=== PATIENT | female | born 1950 | race Caucasian/White ===

== ENCOUNTER 2018-09-25 11:03 | Inpatient (IN) | payer OTHER ==
[2018-09-19 14:44] LABS: BASOPHILS % (AUTO) 0.5 % (0-1); EOSINOPHILS # (AUTO) 0.2 X10'3 (0-0.9); EOSINOPHILS % (AUTO) 3.3 % (0-6); LYMPHOCYTES # (AUTO) 1.9 X10'3 (1.1-4.8); LYMPHOCYTES % (AUTO) 31.2 % (21-51); MEAN CORPUSCULAR HEMOGLOBIN 28.9 PG (27.0-31.0); MEAN CORPUSCULAR HGB CONC 33.1 % (33.0-36.5); MEAN CORPUSCULAR VOLUME 87.2 FL (78-98); MEAN PLATELET VOLUME 8.3 FL (7.4-10.4); MONOCYTES # (AUTO) 0.5 X10'3 (0-0.9); NEUTROPHILS # (AUTO) 3.5 X10'3 (1.8-7.7); PRE OP HEMATOCRIT 41.5 % (35.0-45.0); PRE OP HEMOGLOBIN 13.7 g/dL (12.0-16.0); PRE OP PLATELET COUNT 333 X10'3 (140-440); RED BLOOD COUNT 4.76 X10'6 (4.20-5.60); RED CELL DISTRIBUTION WIDTH 12.8 % (11.5-14.5)
[2018-09-19 15:01] LABS: ALBUMIN 3.6 G/DL (3.4-5.0); ALBUMIN/GLOBULIN RATIO 1.1 (1.1-1.5); ALKALINE PHOSPHATASE 91 IU/L (46-116); BLOOD UREA NITROGEN 14 MG/DL (7-18); BUN/CREATININE RATIO 17.5 (6.6-38.0); CALCIUM 9.2 MG/DL (8.5-10.1); CHLORIDE 106 MMOL/L (99-107); PRE OP ALT 24 U/L (30-65); PRE OP ANION GAP 8 (8-16); PRE OP AST 15 U/L (10-37); PRE OP BILIRUB, TOTAL 0.6 MG/DL (0.0-1.0); PRE OP GLUCOSE 110 MG/DL (70-104); PRE OP SODIUM 143 MMOL/L (135-145); TOTAL CARBON DIOXIDE 28.9 MMOL/L (24-32); eGFR 71 ML/MIN
[2018-09-25] VITALS (15 sets, daily range): BP systolic 88–113; BP diastolic 50–76
[~2018-09-25] VITALS: Ht 162.6 cm; Wt 67.0 kg
[~2018-09-25 11:03] MED LIST: ATOR10TA70 PO; CALC-729 PO; LEVO150T PO; VANCOMYCIN INJ 1000 MG in NORMAL SALINE 250ml IV.SOLN IV ONE; acetaminophen 325mg tablet PO ONE; cefazolin/dext.iso 2gm/100 ML IV ONE; famotidine 20mg tablet PO ONE; gabapentin 300mg capsule PO ONE; metoclopramide 5 mg/ml inj IV ONE; oxyCODONE SR 10mg (sust. release) tab -2 tabs (20mg) PO ONE; ringers solution, lacted 1,000 ML IV SCH; tranexamic acid inj. 1,000 MG in normal saline 100ml IV soln 90 ML IV ONE
[2018-09-25] MEDS ORDERED: MIDAZolam 1mg/ml 10ml vial ONE (14:18)
[2018-09-25] MEDS ORDERED: fentaNYL/PF 50MCG/1 ML 2ML syringe ONE (14:18)
[2018-09-25] MEDS ORDERED: tetracaine 1% (10mg/ml) pres. free inj. ONE (14:19)
[2018-09-25] MEDS ORDERED: ROPIVAcaine inj 200 MG, ketorolac trometh inj. 30 MG, epiNEPHrine inj 0.6 MG, morphine ... IU ONE ×5 (14:30)
[2018-09-25] MEDS ORDERED: propofol inj 20 ML IV ONE (14:52)
[2018-09-25] MEDS ORDERED: ringers solution, lacted 1,000 ML IV SCH (15:02)
[2018-09-25] MEDS ORDERED: ondansetron/PF 4mg/2ml inj IV PRN (15:05)
[2018-09-25] MEDS ORDERED: meperidine/PF 25mg/ml syringe IV PRN ×3 (15:05)
[2018-09-25] MEDS ORDERED: morphine 4 MG/ML inj SYRINge IV PRN ×2 (15:05)
[2018-09-25] MEDS ORDERED: proCHLORperazine 10 MG/2 ml inj IV PRN (15:05)
[2018-09-25] MEDS ORDERED: ROPIVAcaine 0.5% (5mg/ml) 30ml vial ONE ×2 (15:44→15:49)
[2018-09-25] MEDS ORDERED: ketorolac trometh. 30mg/ml inj. ONE (15:48)
[2018-09-25] MEDS ORDERED: epiNEPHrine 1 mg/ml inj ONE (15:48)
[2018-09-25] MEDS ORDERED: morphine 10mg/ml inj. ONE (15:49)
[2018-09-25] MEDS ORDERED: magnesium hydroxide 30ml (MOM) UD suspension PO PRN (16:15)
[2018-09-25] MEDS ORDERED: diphenhydrAMINE 25mg capsule PO PRN ×2 (16:15)
[2018-09-25] MEDS ORDERED: acetaminophen 325mg tablet PO PRN (16:15)
[2018-09-25] MEDS ORDERED: bisacodyl 10mg suppository rectal RC PRN (16:15)
[2018-09-25] MEDS ORDERED: HYDROmorphone 1 mg/ml syringe IV PRN ×2 (16:15)
[2018-09-25] MEDS ORDERED: tranexamic acid inj. 700 MG in normal saline 100ml IV soln 100 ML IV ONE (19:15)
[2018-09-25] MEDS ORDERED: vancomycin/NS 1 GM ADD-VANTAGE 250 ML IV SCH (20:00)
[2018-09-25] MEDS: acetaminophen 325mg tablet PO SCH (22:39)
[2018-09-25] MEDS: sennosides 8.6mg tablet PO SCH (22:40)
[2018-09-25] MEDS: gabapentin 300mg capsule PO SCH (22:40)
[2018-09-25] MEDS: ondansetron/PF 4mg/2ml inj IV PRN (22:48)
[2018-09-26] VITALS (7 sets, daily range): BP systolic 104–139; BP diastolic 58–71
[2018-09-26] MEDS: potassium cl 20mEq in 1/2 NS 1,000 ML IV SCH ×4 (00:20→16:14)
[2018-09-26] MEDS: ceFAZolin 1GM/D5W- ADD-VANTAGE 50 ML IV SCH ×2 (00:23→15:44)
[2018-09-26] MEDS: acetaminophen 325mg tablet PO SCH ×4 (02:00→19:55)
[2018-09-26] MEDS: oxyCODONE IR 5mg (immed. release) tablet PO PRN ×3 (04:54→21:26)
[2018-09-26 05:24] LABS: BASOPHILS % (AUTO) 0 % (0-1); EOSINOPHILS # (AUTO) 0.2 X10'3 (0-0.9); EOSINOPHILS % (AUTO) 1.4 % (0-6); HEMATOCRIT 36.9 % (35.0-45.0); HEMOGLOBIN 12.6 g/dl (12.0-16.0); LYMPHOCYTES # (AUTO) 0.7 X10'3 (1.1-4.8); LYMPHOCYTES % (AUTO) 5.7 % (21-51); MEAN CORPUSCULAR HEMOGLOBIN 29.3 PG (27.0-31.0); MEAN CORPUSCULAR HGB CONC 34.2 % (33.0-36.5); MEAN CORPUSCULAR VOLUME 85.8 FL (78-98); MEAN PLATELET VOLUME 8.7 FL (7.4-10.4); MONOCYTES # (AUTO) 0.3 X10'3 (0-0.9); MONOCYTES % (AUTO) 2.7 % (2-12); NEUTROPHILS # (AUTO) 10.4 X10'3 (1.8-7.7); NEUTROPHILS % (AUTO) 90.2 % (42-75); PLATELET COUNT 247 X10'3 (140-440); RED CELL DISTRIBUTION WIDTH 12.5 % (11.5-14.5); WHITE BLOOD COUNT 11.6 X10'3 (4.5-11.0)
[2018-09-26 06:00] LABS: ANION GAP 11 (8-16); CHLORIDE 104 MMOL/L (99-107); POTASSIUM 4.8 MMOL/L (3.5-5.1); SODIUM 139 MMOL/L (135-145); TOTAL CARBON DIOXIDE 24.2 MMOL/L (24-32)
[2018-09-26] MEDS ORDERED: atorvastatin 10mg tablet PO SCH (08:00)
[2018-09-26] MEDS: calcium carbonate/vitamin D3 tablet PO SCH ×2 (08:51→19:14)
[2018-09-26] MEDS: levoTHYROXINE 75mcg tablet PO SCH (08:51)
[2018-09-26] MEDS: gabapentin 300mg capsule PO SCH ×3 (08:52→21:26)
[2018-09-26] MEDS: aspirin 325mg tablet PO SCH (08:52)
[2018-09-26] MEDS: ondansetron/PF 4mg/2ml inj IV PRN (12:14)
[2018-09-26] MEDS: celeCOXIB 100mg capsule PO SCH (19:55)
[2018-09-26] MEDS: proCHLORperazine 10 MG/2 ml inj IV PRN (21:10)
[2018-09-26] MEDS: atorvastatin 10mg tablet PO SCH (21:26)
[2018-09-26] MEDS: sennosides 8.6mg tablet PO SCH (21:26)
[2018-09-27] MEDS: potassium cl 20mEq in 1/2 NS 1,000 ML IV SCH (00:14)
[2018-09-27] MEDS: acetaminophen 325mg tablet PO SCH ×3 (01:56→13:58)
[2018-09-27] MEDS: oxyCODONE IR 5mg (immed. release) tablet PO PRN ×4 (01:57→18:19)
[2018-09-27 06:00] VITALS: BP 151/79
[2018-09-27] MEDS: levoTHYROXINE 75mcg tablet PO SCH (07:00)
[2018-09-27] MEDS: proCHLORperazine 10 MG/2 ml inj IV PRN (07:01)
[2018-09-27 08:13] LABS: BASOPHILS % (AUTO) 0 % (0-1); EOSINOPHILS # (AUTO) 0.2 X10'3 (0-0.9); EOSINOPHILS % (AUTO) 1.3 % (0-6); HEMATOCRIT 36.2 % (35.0-45.0); HEMOGLOBIN 11.9 g/dl (12.0-16.0); LYMPHOCYTES # (AUTO) 0.9 X10'3 (1.1-4.8); LYMPHOCYTES % (AUTO) 7.4 % (21-51); MEAN CORPUSCULAR HEMOGLOBIN 28.7 PG (27.0-31.0); MEAN CORPUSCULAR HGB CONC 32.9 % (33.0-36.5); MEAN CORPUSCULAR VOLUME 87.2 FL (78-98); MEAN PLATELET VOLUME 8.4 FL (7.4-10.4); MONOCYTES % (AUTO) 8.7 % (2-12); NEUTROPHILS # (AUTO) 9.9 X10'3 (1.8-7.7); NEUTROPHILS % (AUTO) 82.6 % (42-75); PLATELET COUNT 258 X10'3 (140-440); RED BLOOD COUNT 4.15 X10'6 (4.20-5.60); RED CELL DISTRIBUTION WIDTH 12.6 % (11.5-14.5)
[2018-09-27] MEDS: calcium carbonate/vitamin D3 tablet PO SCH ×2 (08:37→18:19)
[2018-09-27] MEDS: gabapentin 300mg capsule PO SCH ×3 (08:37→19:59)
[2018-09-27] MEDS: celeCOXIB 100mg capsule PO SCH ×2 (08:37→19:59)
[2018-09-27] MEDS: aspirin 325mg tablet PO SCH (08:38)
[2018-09-27 10:00] VITALS: BP 149/71
[2018-09-27] MEDS ORDERED: acetaminophen 325mg tablet PO PRN (16:15)
[2018-09-27 18:00] VITALS: BP 150/74
[2018-09-27] MEDS: sennosides 8.6mg tablet PO SCH (19:59)
[2018-09-27] MEDS: atorvastatin 10mg tablet PO SCH (19:59)
[2018-09-27 22:00] VITALS: BP 147/75
[2018-09-28] MEDS: oxyCODONE IR 5mg (immed. release) tablet PO PRN ×2 (01:00→05:03)
[2018-09-28 06:00] VITALS: BP 130/76
[2018-09-28 07:01] LABS: BASOPHILS % (AUTO) 0.1 % (0-1); EOSINOPHILS # (AUTO) 0.2 X10'3 (0-0.9); EOSINOPHILS % (AUTO) 1.8 % (0-6); HEMATOCRIT 35.8 % (35.0-45.0); LYMPHOCYTES # (AUTO) 0.7 X10'3 (1.1-4.8); LYMPHOCYTES % (AUTO) 7.3 % (21-51); MEAN CORPUSCULAR HEMOGLOBIN 29.1 PG (27.0-31.0); MEAN CORPUSCULAR HGB CONC 33.6 % (33.0-36.5); MEAN CORPUSCULAR VOLUME 86.8 FL (78-98); MEAN PLATELET VOLUME 8.6 FL (7.4-10.4); MONOCYTES % (AUTO) 10.7 % (2-12); NEUTROPHILS # (AUTO) 7.8 X10'3 (1.8-7.7); NEUTROPHILS % (AUTO) 80.1 % (42-75); PLATELET COUNT 233 X10'3 (140-440); RED BLOOD COUNT 4.13 X10'6 (4.20-5.60); RED CELL DISTRIBUTION WIDTH 12.3 % (11.5-14.5); WHITE BLOOD COUNT 9.7 X10'3 (4.5-11.0)
[2018-09-28] MEDS: gabapentin 300mg capsule PO SCH (08:53)
[2018-09-28] MEDS: levoTHYROXINE 75mcg tablet PO SCH (08:53)
[2018-09-28] MEDS: calcium carbonate/vitamin D3 tablet PO SCH (08:53)
[2018-09-28] MEDS: celeCOXIB 100mg capsule PO SCH (08:53)
[2018-09-28] MEDS: aspirin 325mg tablet PO SCH (08:53)
[2018-09-28 10:00] VITALS: BP 131/68
== END 2018-09-28 10:30 | disposition home or self-care (01) | DRG 470 ==
LOC: PAS IN 11:03 → EDSTATUS 14:30 → ORTHO 4S 17:40
PROVIDERS: ADMIT Orthopaedic Surgery; ATTEND Orthopaedic Surgery
PROC: 8E0Y0CZ Robotic Assisted Procedure of Lower Extremity, Open Approach (ICD-10-PCS; 2018-09-25)
PROC: 3E0T3BZ Introduction of Anesthetic Agent into Peripheral Nerves and Plexi, Percutaneous Approach (ICD-10-PCS; 2018-09-25)
PROC: 0SRD069 Replacement of Left Knee Joint with Oxidized Zirconium on Polyethylene Synthetic Substitute, Cemented, Open Approach (ICD-10-PCS; principal; 2018-09-25 14:14)
DX: M17.12 Unilateral primary osteoarthritis, left knee (principal); D62 Acute posthemorrhagic anemia; E03.9 Hypothyroidism, unspecified; M81.0 Age-related osteoporosis without current pathological fracture; F43.10 Post-traumatic stress disorder, unspecified; E78.5 Hyperlipidemia, unspecified; Z79.899 Other long term (current) drug therapy; Z79.890 Hormone replacement therapy; Z87.891 Personal history of nicotine dependence; Z85.828 Personal history of other malignant neoplasm of skin
CPT/HCPCS: 36415; 80051; 80053; 84443; 85025; 87070; 93005; 97110; 97116; 97162; 97530; A6455; A7000; C1713; C1758; C1776; C9250; G0378; J0171; J0690; J0780; J1170; J1885; J2250; J2270; J2405; J2704; J2765; J2795; J3010; J3370; J7030; J7120